=== PATIENT | female | born 1975 | race Caucasian/White ===

== ENCOUNTER 2018-02-10 14:07 | Emergency (ER) | payer OTHER ==
[~2018-02-10] VITALS: Ht 177.8 cm; Wt 90.7 kg
--- NOTE | ~2018-02-10 | EKG ---
[place] [address] [employer] [place] [address] ELECTROCARDIOGRAM REPORT Name: ANIYA GARLAND [id number] Admission: 02/10/18 Attend Phys: Discharge: Date of : 77 Report #: [id number] THIS REPORT FOR: //name// [facility] ED Test Date: 2018-02-10 Test Time: 14:40:30 Pat Name: ANIYA GARLAND Department: Room: Gender: F Patient Access Associate: MIKI : 1975 Requested By: Stuart Moreno Order Number: [id number] MD: Robert Hawkins Measurements Intervals [place] Rate: 81 P: 58 [place]: 134 QRS: 56 QRSD: 92 T: 54 QT: 398 QTc: 462 Interpretive Statements Sinus rhythm Normal tracing Compared to ECG 05/10/2013 13:28:10 No significant changes Electronically Signed On 02-10-2018 17:13:03 CDT by Robert Hawkins [email or web address] <ELECTRONICALLY SIGNED> By: Robert Hawkins MD, [facility] 02/10/18 1713 1440 1440 Robert Hawkins MD, FACC /EPI
[~2018-02-10 14:07] MED LIST: ACETAMINOPHEN-1 EAC1 PO; ADVIL100 M2 PO; ANDROGEL TOP; BACTRIM DS TAB1 EACH PO; CALCIUM PO; CELEXA40 MG PO; CYMBALTA30 MG PO; EFFEXOR 5050 MG/1 T1 PO; ESTRACE1 MG PO; ESTROGEN-METHY1 EAC2 PO; EVAMIST8.1 ML; FENTANYL PA12 MCG/HR TP; FISH OIL 1,0001 EAC5 PO; FLEXERIL PO; LYRICA 75 MG CA75 MG PO; MULTI VITAMIN1 EACH PO; NABUMETONE 500500 M1 PO; NEURONTIN 300300 M1 PO; NORCO 5-325 TA1 EACH PO; RELAFEN500 MG PO; TOPAMAX 25 MG T25 M1 PO; TOPROL XL50 MG PO; ZOFRAN ODT4 MG PO
[2018-02-10 14:46] LABS: ABSOLUTE NEUTROPHILS 7.9 thou/uL (1.4-8.2); BASOPHILS 0.3 % (0.0-2.0); EOSINOPHILS 2.3 % (0.0-3.0); HEMATOCRIT 39.1 % (37.0-47.0); HEMOGLOBIN 13.5 gm/dL (12.0-15.0); LYMPHOCYTES 13.1 % (24.0-44.0); MCH 30.7 pg (26.0-34.0); MCHC 34.6 g/dL (28.0-37.0); MCV 88.8 fL (80.0-100.0); MONOCYTES 4.7 % (1.0-8.0); PLATELET COUNT 208 thou/uL (150-400); POLYS 79.6 % (36.0-66.0); RDW 13.2 % (10.5-14.5); WBC 9.9 thou/uL (4.0-11.0)
[2018-02-10 14:47] LABS: POC CA IONIZED 4.7 mg/dL (4.5-5.3); POC CREATININE 0.9 mg/dL (0.6-1.3); POC HEMOGLOBIN 13.3 g/dL (12.0-15.0); POC POTASSIUM 3.8 mmol/L (3.5-5.1)
[2018-02-10 15:01] LABS: APTT 26.2 Seconds (24.5-32.8); PROTIME 9.4 Seconds (9.3-11.4)
[2018-02-10 15:06] LABS: ANION GAP 6 mmol/L (7-16); BUN 12 mg/dL (7-18); CALCIUM 9.3 mg/dL (8.5-10.1); CHLORIDE 104 mmol/L (98-107); CO2 30 mmol/L (21-32); GLUCOSE 115 mg/dL (74-106); POTASSIUM 3.8 mmol/L (3.5-5.1); SODIUM 140 mmol/L (136-145)
[2018-02-10 15:14] LABS: ALBUMIN 3.8 g/dL (3.4-5.0); MAGNESIUM 1.9 mg/dL (1.8-2.4); SGOT 23 U/L (15-37); SGPT 25 U/L (30-65); TOTAL BILIRUBIN 0.3 mg/dL (<0.1-1.0); TOTAL PROTEIN 7.3 g/dL (6.4-8.2); TROPONIN-I < 0.04 ng/mL (<0.06)
[2018-02-10] MEDS ORDERED: ZOFRAN ODT8 MG PO (17:11)
[2018-02-10] MEDS ORDERED: ATIVAN0.5 MG PO (17:11)
[2018-02-10 17:18] LABS: URINE BILIRUBIN NEGATIVE (Negative); URINE BLOOD NEGATIVE (Negative); URINE CLARITY CLEAR; URINE GLUCOSE-RANDOM* NEGATIVE (Negative); URINE KETONES NEGATIVE (Negative); URINE LEUKOCYTES-REFLEX NEGATIVE (Negative); URINE NITRITE-REFLEX NEGATIVE (Negative); URINE PROTEIN (DIPSTICK) NEGATIVE (Negative); URINE UROBILINOGEN 0.2 E.U./dl (0.2-1.0)
[2018-02-10 17:19] LABS: URINE COLOR YELLOWT
[2018-02-10 17:24] LABS: AMP/METHAMP Negative (Negative); BARBITURATES Negative (Negative); BENZODIAZEPINES Negative (Negative); COCAINE Negative (Negative); METHADONE Negative (Negative); OPIATES Negative (Negative); PCP Negative (Negative)
== END 2018-02-10 18:45 | disposition home or self-care (01) ==
LOC: ER 14:07
PROVIDERS: Emergency Medicine
DX: R42 Dizziness and giddiness (principal); R51 Headache; R11.2 Nausea with vomiting, unspecified; F80.81 Childhood onset fluency disorder; Z90.49 Acquired absence of other specified parts of digestive tract; Z90.710 Acquired absence of both cervix and uterus; Z88.8 Allergy status to other drugs, medicaments and biological substances

== ENCOUNTER 2018-07-01 19:19 | Emergency (ER) | payer OTHER ==
[~2018-07-01] VITALS: Ht 172.7 cm; Wt 90.7 kg
--- NOTE | ~2018-07-01 | EKG ---
[address] [address] ELECTROCARDIOGRAM REPORT Name: ANIYA GARLAND Rishabh [facility] #[facility] [id number] Admission: 07/01/18 Attend Phys: Discharge: Date of : 77 Report #: [id number] THIS REPORT FOR: //name// [facility] ED Test Date: 2018-07-01 Test Time: 19:32:39 Pat Name: ANIYA GARLAND Department: Room: Gender: F Hr Business Partner Consultant: MARBIN : 1975 Requested By: Artis Man Order Number: [id number] MD: Alireza Nesbitt Measurements Intervals [place] Rate: 97 P: 66 [place]: 133 QRS: 75 QRSD: 102 T: 40 QT: 396 QTc: 503 Interpretive Statements Sinus rhythm Compared to ECG 02/10/2018 14:40:30 No significant changes Electronically Signed On 07-01-2018 22:30:51 CDT by Alireza Nesbitt [email or web address] <ELECTRONICALLY SIGNED> By: Alireza Nesbitt MD 07/01/18 2230 31 31 Alireza Nesbitt MD /SOLITARIO
[~2018-07-01 19:19] MED LIST changes: +ATIVAN0.5 MG PO; +ZOFRAN ODT8 MG PO
[2018-07-01 19:48] LABS: ABSOLUTE NEUTROPHILS 5.3 thou/uL (1.4-8.2); EOSINOPHILS 3.9 % (0.0-3.0); HEMATOCRIT 38.6 % (37.0-47.0); HEMOGLOBIN 13.3 gm/dL (12.0-15.0); LYMPHOCYTES 23.4 % (24.0-44.0); MCH 30.6 pg (26.0-34.0); MCHC 34.3 g/dL (28.0-37.0); MCV 89.1 fL (80.0-100.0); MONOCYTES 5.9 % (1.0-8.0); PLATELET COUNT 198 thou/uL (150-400); POLYS 65.8 % (36.0-66.0); RBC 4.33 mil/uL (4.20-5.00); RDW 12.4 % (10.5-14.5); WBC 8.1 thou/uL (4.0-11.0)
[2018-07-01 19:54] LABS: CALCIUM 9.2 mg/dL (8.5-10.1); CREATININE 0.9 mg/dL (0.6-1.0)
[2018-07-01 20:01] LABS: ALBUMIN 3.7 g/dL (3.4-5.0); TOTAL BILIRUBIN 0.3 mg/dL (<0.1-1.0); TOTAL PROTEIN 7.5 g/dL (6.4-8.2)
== END 2018-07-01 22:10 | disposition home or self-care (01) ==
LOC: ER 19:19
PROVIDERS: Emergency Medicine
DX: R11.2 Nausea with vomiting, unspecified (principal); R51 Headache; F80.81 Childhood onset fluency disorder; Z90.49 Acquired absence of other specified parts of digestive tract; Z90.710 Acquired absence of both cervix and uterus; Z88.8 Allergy status to other drugs, medicaments and biological substances

== ENCOUNTER → 2019-06-29 | Outpatient (CLI) | payer OTHER | LOC: CAT 08:13 | DX: Z13.6 Encounter for screening for cardiovascular disorders (principal); E78.00 Pure hypercholesterolemia, unspecified; I25.10 Atherosclerotic heart disease of native coronary artery without angina pectoris ==

== ENCOUNTER → 2020-08-11 | Outpatient (CLI) | payer BC | LOC: LAB 07:44 | PROVIDERS: ATTEND Nurse Practitioner | DX: Z20.828 Contact with and (suspected) exposure to other viral communicable diseases (principal) ==

== ENCOUNTER 2021-05-31 12:02 | Emergency (ER) | payer BC, OTHER ==
[~2021-05-31] VITALS: Ht 172.7 cm; Wt 97.5 kg
[2021-05-31 13:26] LABS: ABSOLUTE NEUTROPHILS 6.6 thou/uL (1.4-8.2); BASOPHILS 0.9 % (0.0-2.0); HEMATOCRIT 42.2 % (37.0-47.0); HEMOGLOBIN 14.1 gm/dL (12.0-15.0); LYMPHOCYTES 20.1 % (24.0-44.0); MCH 30.2 pg (26.0-34.0); MCHC 33.3 g/dL (28.0-37.0); MCV 90.8 fL (80.0-100.0); MONOCYTES 5.6 % (1.0-8.0); PLATELET COUNT 239 thou/uL (150-400); POLYS 71.4 % (36.0-66.0); RBC 4.65 mil/uL (4.20-5.00); WBC 9.2 thou/uL (4.0-11.0)
[2021-05-31 13:56] LABS: ANION GAP 10 mmol/L (7-16); BUN 11 mg/dL (7-18); CALCIUM 8.9 mg/dL (8.5-10.1); CHLORIDE 105 mmol/L (98-107); CO2 25 mmol/L (21-32); CREATININE 0.9 mg/dL (0.6-1.0); GLUCOSE 88 mg/dL (74-106); SODIUM 140 mmol/L (136-145)
[2021-05-31 14:03] LABS: ALBUMIN 3.6 g/dL (3.4-5.0); SGOT 17 U/L (15-37); SGPT 40 U/L (30-65); TOTAL BILIRUBIN 0.4 mg/dL (0.2-1.0); TOTAL PROTEIN 7.3 g/dL (6.4-8.2)
[2021-05-31] MEDS ORDERED: HYDROCODONE-CH115 ML PO (15:37)
--- NOTE | 2021-05-31 15:55 | EKG ---
[place] [address] [facility] [place] [address] ELECTROCARDIOGRAM REPORT Name: ANIYA GARLAND Room #: REG [facility]#: [id number] Admission: 05/31/21 Attend Phys: Discharge: Date of : 77 Report #: [id number] [facility] ED Test Date: 2021-05-31 Test Time: 12:09:14 Pat Name: ANIYA GARLAND Department: Room: Gender: F Lathe Set Up Operator: : 1975 Requested By: Natalie Tapia Order Number: [id number] MD: Good Miramontes Measurements Intervals [place] Rate: 85 P: 61 [place]: 128 QRS: 64 QRSD: 81 T: 48 QT: 360 QTc: 428 Interpretive Statements Sinus rhythm Baseline wander in lead(s) V6 Compared to ECG 07/01/2018 19:32:39 No significant changes Electronically Signed On 05-31-2021 15:55:04 CDT by Good Miramontes [email or web address] <ELECTRONICALLY SIGNED> By: Good Miramontes MD, [facility] 05/31/21 1555 1209 1209 Good Miramontes MD, FACC /EPI
[2021-05-31 15:59] VITALS: BP 110/71
== END 2021-05-31 16:00 | disposition home or self-care (01) ==
LOC: ER 12:02
PROVIDERS: Nurse Practitioner Family
DX: R06.00 Dyspnea, unspecified (principal); R05 Cough; Z90.710 Acquired absence of both cervix and uterus; Z79.899 Other long term (current) drug therapy; Z88.8 Allergy status to other drugs, medicaments and biological substances; Z90.49 Acquired absence of other specified parts of digestive tract

== ENCOUNTER 2021-06-20 09:51 | Inpatient (IN) | payer BC, OTHER ==
[~2021-06-20] VITALS: Ht 172.7 cm; Wt 102.1 kg
--- NOTE | ~2021-06-20 | HC ---
[facility] [place] [address] CONSULTATION Name: ANIYA GARLAND Room #: 218-P [facility] IN .R.#: [id number] Admission: 06/20/21 Attend Phys: Bright Dinh MD Discharge: Date of : 77 Report #: [id number] THIS REPORT FOR: cc: Bright Dinh MD, Neal A. MD Khosla, Parveen K. MD ~ DATE OF SERVICE: 06/20/2021 HISTORY OF PRESENT ILLNESS: This is a 46-year-old female patient who was evaluated by me for speech difficulty. This patient says that whenever she gets nervous or has any sickness, she develops speech difficulty and then she becomes better. She also has multiple other symptoms. I went back and reviewed her records in the computer. She was seen by Dr. Enriquez, another neurologist in 2016 with what looks like similar symptoms. She had an MRI is done as far as back in 2009. There were MRI of the brain with and without contrast. The MRI is with some question of TIA and unremarkable. The patient's MRI has been persistently unremarkable. At one time, she even had an MRV and that was also unremarkable. She does admit that this happened when she becomes nervous. REVIEW OF SYSTEMS: Positive for shortness of breath, nausea, vomiting diagnosis of COVID. These symptom of speech difficulty is going on for 2-3 weeks. She has some history of headache, hepatitis cholecystectomy, hysterectomy, vaginal prolapse. I did not know about the history of hysterectomy before. She takes Topamax and she also takes citalopram. PAST MEDICAL HISTORY: Positive for similar symptoms. FAMILY HISTORY: Unremarkable. SOCIAL HISTORY: She drinks alcohol weekly. PHYSICAL EXAMINATION: Our examinations indicate that she has dysarthric speech. IMPRESSION: Difficult to form in this patient, looks like it is longstanding symptoms, even this one, it is going on for a long time. I have ordered an MRI. I cannot find it. We will try to locate it. We may do some other tasks, but anxiety has to be considered and it was considered as far as back in 2012. Thank you very much for this referral. By: 1856 0037 Prem Hua MD /nt
[~2021-06-20 09:51] MED LIST changes: +HYDROCODONE-CH115 ML PO
[2021-06-20 09:54] VITALS: BP 143/89
[2021-06-20 10:49] LABS: ABSOLUTE NEUTROPHILS 8.9 thou/uL (1.4-8.2); BASOPHILS 0.4 % (0.0-2.0); EOSINOPHILS 0.9 % (0.0-3.0); HEMATOCRIT 41.8 % (37.0-47.0); LYMPHOCYTES 8.6 % (24.0-44.0); MCH 30.7 pg (26.0-34.0); MCHC 33.5 g/dL (28.0-37.0); MCV 91.6 fL (80.0-100.0); PLATELET COUNT 211 thou/uL (150-400); POLYS 86.1 % (36.0-66.0); RBC 4.56 mil/uL (4.20-5.00); WBC 10.3 thou/uL (4.0-11.0)
[2021-06-20 11:02] LABS: ANION GAP 8 mmol/L (7-16); BUN 12 mg/dL (7-18); CALCIUM 8.9 mg/dL (8.5-10.1); CHLORIDE 107 mmol/L (98-107); CO2 24 mmol/L (21-32); GLUCOSE 104 mg/dL (74-106); POTASSIUM 4.1 mmol/L (3.5-5.1); SODIUM 139 mmol/L (136-145)
[2021-06-20 11:12] LABS: ALBUMIN 3.3 g/dL (3.4-5.0); SGOT 20 U/L (15-37); SGPT 33 U/L (14-59); TOTAL BILIRUBIN 0.6 mg/dL (0.2-1.0)
[2021-06-20 11:29] LABS: URINE BILIRUBIN NEGATIVE (Negative); URINE BLOOD NEGATIVE (Negative); URINE CLARITY CLEAR; URINE COLOR YELLOW; URINE GLUCOSE-RANDOM* NEGATIVE (Negative); URINE KETONES NEGATIVE (Negative); URINE LEUKOCYTES-REFLEX NEGATIVE (Negative); URINE NITRITE-REFLEX NEGATIVE (Negative); URINE PROTEIN (DIPSTICK) NEGATIVE (Negative); URINE SPECIFIC GRAVITY <= 1.005 (1.005-1.035); URINE UROBILINOGEN 0.2 E.U./dl (0.2-1.0)
--- NOTE | 2021-06-20 13:55 | EKG ---
[address] [place] [address] ELECTROCARDIOGRAM REPORT Name: ANIYA GARLAND Room #: 170-11 ADM IN M.R.#: [id number] Admission: 06/20/21 Attend Phys: Bright Dinh MD Discharge: Date of : 77 Report #: [id number] [facility] ED Test Date: 2021-06-20 Test Time: 10:25:36 Pat Name: ANIYA GARLAND Department: Room: 170 Gender: F Technical Architect: sabrina : 1975 Requested By: Khai Simon Order Number: [id number] MD: Good Miramontes Measurements Intervals [place] Rate: 81 P: 57 MD: 133 QRS: 37 QRSD: 83 T: 41 QT: 374 QTc: 434 Interpretive Statements Sinus rhythm Probable left atrial enlargement Compared to ECG 05/31/2021 12:09:14 No significant changes Electronically Signed On 06-20-2021 13:55:30 CDT by Good Miramontes [email or web address] <ELECTRONICALLY SIGNED> By: Good Miramontes MD, [facility] 06/20/21 1355 1025 1025 Good Miramontes MD, FACC /EPI
--- NOTE | 2021-06-20 19:14 | NUR ---
Paperwork faxed to [facility]U at this time
--- NOTE | 2021-06-20 19:24 | NUR ---
Called to give report and was told AUBREE Sanon not available and will call ER back for report
--- NOTE | 2021-06-20 19:34 | NUR ---
2x called to give report to AUBREE Sanon but was told Fab was busy with a pt in isolation and he will call ER back to get report
[2021-06-20 19:49] VITALS: BP 128/63
[2021-06-20 20:20] VITALS: BP 140/87
[2021-06-20] MEDS ORDERED: VIIBRYD20 MG PO (20:30)
[2021-06-20] MEDS ORDERED: BELBUCA150 MCG PO (20:31)
[2021-06-20] MEDS ORDERED: MINOXIDIL2.5 MG PO (20:32)
[2021-06-20] MEDS ORDERED: ASPIRIN EC81 M1 PO (20:33)
[2021-06-20] MEDS ORDERED: LUNESTA3 MG PO (20:33)
[2021-06-20 23:34] VITALS: BP 128/77
[2021-06-21 04:15] VITALS: BP 119/69
--- NOTE | 2021-06-21 04:56 | NUR ---
PT MAKING POOR PROGRESS TOWARDS GOALS. RATING UPPER STERNUM, THROAT AND HEADACHE /10. PT REPORTING MINIMAL RELIEF FROM TYLENOL AND SLIGHTLY MORE RELIEF WITH COUGH SYRUP AND TORADOL. SEE CHARTING.
[2021-06-21 08:20] VITALS: BP 132/82
[2021-06-21 12:56] VITALS: BP 147/97
[2021-06-21 16:50] VITALS: BP 124/67
[2021-06-21 19:44] VITALS: BP 142/96
[2021-06-22 04:45] VITALS: BP 118/46
--- NOTE | 2021-06-22 06:10 | NUR ---
ALERT AND ORIENTED, SR ON TELE, C/O THROAT PAIN, TYL GIVENX2 WITH PARTIAL RELIEF, ASSESSMENTS CHARTED, MEDS GIVEN PER MAR, NO ACUTE DISTRESS, STATES SHE SLEPT WELL, WILL CONTINUE TO MONITOR
[2021-06-22 07:40] VITALS: BP 133/81
[2021-06-22 08:07] LABS: HIV ANTIBODY Non Reactive (Non Reactive)
[2021-06-22] MEDS ORDERED: NYSTATIN100000 UNI SW&SWALLOW (09:34)
[2021-06-22] MEDS ORDERED: PREDNISONE 10 M10 MG PO (09:36)
--- NOTE | 2021-06-22 10:59 | HC ---
[facility] [place] [address] CONSULTATION Name: ANIYA GARLAND Room #: 218-P [facility] IN .R.#: [id number] Admission: 06/20/21 Attend Phys: Bright Dinh MD Discharge: Date of : 77 Report #: [id number] THIS REPORT FOR: cc: Bright Dinh MD, Neal A. MD Barry, Joseph W. MD ~ DATE OF SERVICE: 06/21/2021 INFECTIOUS DISEASE CONSULTATION ATTENDING PHYSICIAN: Dr. Dinh. REASON FOR EVALUATION: Febrile illness, diagnosed with COVID several weeks ago, concerned about secondary infection, also development of speech difficulties, which historically she relates to infection as well. HISTORY OF PRESENT ILLNESS: Chart reviewed. The patient examined. This is a 46-year-old woman with history of headaches, drug-induced hepatitis, several surgeries - laparoscopic cholecystectomy, hysterectomy, appendectomy, has been complicated by pain, requiring surgeries for adhesions, who generally has not been feeling well for a number of months. She was diagnosed with COVID roughly 5 weeks ago, had a fairly benign course. She was ill for a few days, had responded only to have what appeared to be worsening clinical picture over the course of the last 2 weeks. She has had increasing pain associated with mid portion of her face attributed to the sinuses, also her neck and upper chest, difficulty with swallowing. She notes difficulty with stuttering, which she has had historically with infection. She has had a rash involving her proximal lower extremities, described as quite pruritic for a number of months, attenuated with corticosteroids, and she has developed more generalized rash, which she attributed to COVID, also bilateral hand swelling primarily involving the joints. She has been evaluated as an outpatient. Pending workup had been fairly unremarkable; however, she had a high-grade temperature elevation night before admission to excess of 103. They had associated that with some dyspnea and some chest discomfort as well. Evaluation including blood cultures, which were drawn at the time of admission, are sterile thus far. test was reportedly done and negative. CTA chest PE protocol showed no evidence of PE or aortic aneurysm or dissection, mild patchy bibasilar atelectasis. No evidence of infiltrate, effusion or pneumothorax. Urinalysis was benign. On additional questioning, really no exposure history, has recent travel. She did note she has some thrush, which she gets occasionally, reported history of vaginal candidiasis. ALLERGIES: LISTED TO COMPAZINE, REGLAN, MACROBID. CURRENT MEDICATIONS: Include cyclobenzaprine, phenazopyridine, statin, [address] [address] CONSULTATION Name: ANIYA GARLAND Room #: 218-P [facility] IN .R.#: [id number] Admission: 06/20/21 Attend Phys: Bright Dinh MD Discharge: Date of : 77 Report #: [id number] acetaminophen, topiramate, guaifenesin, methylprednisolone, lorazepam as needed, ondansetron. 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 SOCIAL HISTORY: She is , nonsmoker, occasional ethanol, no illicit drug use. FAMILY HISTORY: Noncontributory. REVIEW OF SYSTEMS: Otherwise, unremarkable with the exception of the above. PHYSICAL EXAMINATION: GENERAL: She is alert, cooperative. She is stuttering, although she is understood. She is reasonably well nourished. Mild to moderate distress. VITAL SIGNS: Temperature 98.1, pulse 87, respirations 20, blood pressure 149/97, saturations 98%. SKIN: Warm, dry, no rashes. HEENT: Normocephalic. Extraocular muscles intact. Sinuses are not overtly tender. Oropharynx is without lesion, although does have some whitish plaques consistent with the thrush. NECK: Somewhat full. Mildly tender to palpation, not appreciate any specific adenopathy. LUNGS: Generally clear to auscultation. HEART: Regular, I do not appreciate a murmur. ABDOMEN: Mildly distended, soft, nontender. EXTREMITIES: No cyanosis. GENITOURINARY AND RECTAL: Deferred. LABORATORY DATA: As described above. Blood cultures sterile thus far. Electrolytes: Sodium 139, potassium 4.1, chloride 107, bicarbonate 24, anion gap of 8, BUN and creatinine 12 and 1.0, glucose of 104. LFTs unremarkable. Albumin 3.3, total protein 7.0. Coronavirus testing was negative. CBC: White count of 10.0, H and H of 14.0 and 41.8, platelets of 211. Does have a relative lymphocytopenia. Chest x-ray, no acute process. ASSESSMENT AND PLAN: Febrile illness. The patient presents with several different issues, it is difficult to ascertain if this is post-COVID type of issue, oppressed secondary to bacterial infection versus some underlying issue that has been prompted by immunosuppression related to COVID. We will do additional diagnostic testing including labs, also some imaging. We will also [address] [address] CONSULTATION Name: ANIYA GARLAND Room #: 218-P ADM IN M.R.#: [id number] Admission: 06/20/21 Attend Phys: Bright Dinh MD Discharge: Date of : 77 Report #: [id number] initiate therapy with Unasyn and fluconazole and lengthy discussion with the patient's spouse was discussed with Dr. Dinh. <ELECTRONICALLY SIGNED> By: Babak Wilson MD 06/22/21 1059 1305 2338 Babak Wilson MD /nt
[2021-06-22 11:30] VITALS: BP 128/80
[2021-06-22 15:55] VITALS: BP 127/84
[2021-06-22 16:10] VITALS: BP 128/80
--- NOTE | 2021-06-22 16:26 | NUR ---
PT ALERT AND ORIENTED X 4. PT PLEASANT AND INDEPENDENT. PT COMPLAINED OF MILD THROAT PAIN X2 TODAY, WITH GOOD PAIN RELIEF WITH ACETAMINOPHEN. REVIEWED DISCHARGE INSTRUCTIONS WITH PT. GIVEN INSTRUCTIONS TO FOLLOW UP WITH DR. PHILLIPS IN 1 WEEK, AND DR. GORMAN IN 1-2 WEEKS. GIVEN HANDWRITTEN PRESCRIPTIONS. FLUCONAZOLE 200 MG DAILY #10 WITH 1 REFILL. PRESCRIPTION FOR AUGMENTIN 875 MG BID #14 NO REFILLS. PT VERBALIZED UNDERSTANDING OF DISCHARGE INSTRUCTIONS. WILL DISCHARGE AFTER 1800 DOSE OF SOLUMEDROL. NO CURRENT COMPLAINTS OF PAIN OR DISCOMFORT.
--- NOTE | 2021-06-22 17:27 | NUR ---
PT TRANSPORTED VIA WHEELCHAIR TO EXIT WITH BELONGINGS AND DISCHARGE PAPERWORK. IV DISCONTINUED. PT LEFT WITH IN PRIVATE VEHICLE.
== END 2021-06-22 17:20 | disposition home or self-care (01) | DRG 864 ==
LOC: ER 09:51 → 2N 13:30 → EROBS 13:30 → 2N 19:50
PROVIDERS: Emergency Medicine; Specialist; ADMIT Family Medicine; ATTEND Family Medicine
DX: R50.9 Fever, unspecified (principal); F32.9 Major depressive disorder, single episode, unspecified; B37.9 Candidiasis, unspecified; F98.5 Adult onset fluency disorder; Z90.49 Acquired absence of other specified parts of digestive tract; Z90.710 Acquired absence of both cervix and uterus; Z88.8 Allergy status to other drugs, medicaments and biological substances; Z86.16 Personal history of COVID-19
CPT/HCPCS: 10081